=== PATIENT | male | born 1985 | race Caucasian/White ===

== ENCOUNTER 2017-10-17 10:35 | Emergency (ER) | payer SELFPAY ==
[2017-10-17] MEDS: KETOROLAC 60 MG INJ IM (12:14)
== END 2017-10-17 13:48 | disposition home or self-care (01) ==
LOC: FTE 10:35
DX: M25.571 Pain in right ankle and joints of right foot (principal); M25.561 Pain in right knee; M54.9 Dorsalgia, unspecified
CPT/HCPCS: 99283